=== PATIENT | female | born 1980 | race American Indian/Alaskan Native ===

== ENCOUNTER 2018-03-19 01:44 | Emergency (ER) | payer BC ==
[2018-03-19] MEDS ORDERED: MUCOMYST INHALATION INHALATION ONE (02:16)
[2018-03-19] MEDS ORDERED: XOPENEX IH ONE ×2 (02:16→02:40)
[2018-03-19] MEDS ORDERED: SOLU-Medrol IM ONE (02:17)
[2018-03-19] MEDS ORDERED: ATROVENT IH ONE (02:17)
--- NOTE | 2018-03-19 02:22 | Emergency Department Report ---
ED Shortness of Breath HPI - General Chief Complaint: Dyspnea/Respdistress Stated Complaint: ELIZABETH Time Seen by Provider: 03/19/18 02:16 Source: patient Mode of arrival: Stretcher Limitations: No Limitations - History of Present Illness Initial Comments: Patient is a 37-year-old female with history of hypertension and chronic bronchitis. Patient presented to the ER complaining of excessive coughing and shortness of breaths and wheezing. Patient stated that she's been having this problem for the last 2 months and is just getting worse. Patient stated that she was seen in another ER multiple times to have blood work and x-rays and CAT scan and came back negative. Patient was seen by her primary care physician who referred to an ENT doctor who told that she has allergies. Patient stated that her symptoms is worse at night. Patient denied any fever or chest pain. MD Complaint: shortness of breath, cough -: week(s) - Related Data Previous Rx's Medication Instructions Recorded Last Taken Type ALBUTEROL NEB's [Proventil 0.083% 2.5 mg IH TID PRN #30 nebu 03/19/18 Unknown Rx NEBS] Amoxicillin/Potassium Clav 1 each PO BID #14 tablet 03/19/18 Unknown Rx [Augmentin 875-125 Tablet] Prednisone [predniSONE 10 mg 10 mg PO .TAPER #1 tab.ds.pk 03/19/18 Unknown Rx (6-Day Pack, 21 Tabs)] Allergies Allergy/AdvReac Type Severity Reaction Status Date / Time No Known Allergies Allergy Unverified 03/19/18 02:00 ED Review of Systems ROS: Stated complaint: ELIZABETH Other details as noted in HPI Comment: All other systems reviewed and negative Constitutional: denies: chills, fever Respiratory: cough, shortness of breath, wheezing. denies: orthopnea, SOB with exertion, SOB at rest Cardiovascular: palpitations. denies: chest pain, dyspnea on exertion, orthopnea Gastrointestinal: denies: abdominal pain, nausea, vomiting Neurological: denies: headache, weakness, numbness, paresthesias ED Past Medical Hx - Past Medical History Previous Medical History?: Yes Hx Hypertension: Yes - Social History Smoking Status: Never Smoker Substance Use Type: None - Medications Home Medications: Home Medications Medication Instructions Recorded Confirmed Last Taken Type ALBUTEROL NEB's [Proventil 0.083% 2.5 mg IH TID PRN #30 nebu 03/19/18 Unknown Rx NEBS] Amoxicillin/Potassium Clav 1 each PO BID #14 tablet 03/19/18 Unknown Rx [Augmentin 875-125 Tablet] Prednisone [predniSONE 10 mg 10 mg PO .TAPER #1 tab.ds.pk 03/19/18 Unknown Rx (6-Day Pack, 21 Tabs)] ED Physical Exam - General Limitations: No Limitations General appearance: alert, in no apparent distress, other (actively coughing.) - Head Head exam: Present: atraumatic, normocephalic - Eye Eye exam: Present: normal appearance - ENT ENT exam: Present: normal exam, normal orophraynx, mucous membranes moist - Neck Neck exam: Present: normal inspection, full ROM. Absent: tenderness, meningismus, lymphadenopathy, thyromegaly - Respiratory Respiratory exam: Present: wheezes. Absent: respiratory distress, rales, rhonchi, accessory muscle use, decreased breath sounds, prolonged expiratory - Cardiovascular Cardiovascular Exam: Present: regular rate, normal rhythm, normal heart sounds - GI/Abdominal GI/Abdominal exam: Present: soft, normal bowel sounds. Absent: distended, tenderness, guarding, rebound, rigid, organomegaly, mass, bruit, pulsatile mass , hernia - Extremities Exam Extremities exam: Present: normal inspection, full ROM. Absent: pedal edema, calf tenderness - Back Exam Back exam: Present: normal inspection, full ROM. Absent: tenderness, CVA tenderness (R), CVA tenderness (L), muscle spasm, paraspinal tenderness, vertebral tenderness - Neurological Exam Neurological exam: Present: alert, oriented X3, CN II-XII intact, normal gait, reflexes normal - Skin Skin exam: Present: warm, intact, normal color ED Course Vital Signs 03/19/18 03/19/18 03/19/18 02:02 02:41 03:15 Temperature 98.8 F Pulse Rate 115 H Pulse Rate [ 102 H 100 H Posterior Bilateral Throughout] Respiratory 24 Rate Respiratory 22 20 Rate [Posterior Bilateral Throughout] Blood Pressure 136/82 O2 Sat by Pulse 94 Oximetry 03/19/18 03/19/18 03/19/18 03:30 04:00 05:00 Temperature Pulse Rate 111 H 116 H Pulse Rate [ Posterior Bilateral Throughout] Respiratory Rate Respiratory Rate [Posterior Bilateral Throughout] Blood Pressure 116/68 123/73 123/73 O2 Sat by Pulse 97 94 96 Oximetry 03/19/18 06:02 Temperature Pulse Rate 100 H Pulse Rate [ Posterior Bilateral Throughout] Respiratory Rate Respiratory Rate [Posterior Bilateral Throughout] Blood Pressure O2 Sat by Pulse Oximetry - Reevaluation(s) Reevaluation #1: 03/19/18 06:15 Patient stated that she is feeling much better. I discussed with the results of her CT as sinus and the need to follow-up with ENT as soon as possible. ED Medical Decision Making - Radiology Data Radiology results: report reviewed Referring Physician: ENRIQUE HANSEN Patient Name: VIRA JOHNSON Date of : 1980 Sex: Female Report Date: 2018-03-19 Report Status: Finalized Findings [facility] [address] [place] [address] Cat Scan Report Signed Patient: VIRA JOHNSON MR#: [id number] : 1980 Acct:[id number] Age/Sex: 37 / F ADM Date: 03/19/18 Loc: ED Attending Dr: Ordering Physician: ENRIQUE HANSEN Date of Service: 03/19/18 Procedure(s): CT sinuses wo con Accession Number(s): [id number] cc: ENRIQUE HANSEN FINAL REPORT PROCEDURE: CT SINUSES WO CON TECHNIQUE: Computerized axial tomography of the paranasal sinuses was performed without contrast material. Axial, coronal, and sagittal multiplanar reformatted images were created from the original dataset. HISTORY: facial pain, bilateral maxillary tenderness X 4 months COMPARISON: No prior studies are available for comparison. FINDINGS: There is complete opacification of the frontal, ethmoid and sphenoid sinuses and the left maxillary sinus. There is mucosal thickening in the right maxillary sinus. The osteal meatal units are obstructed bilaterally. There is no destructive bony process. Nasal septum is midline. Superficial soft tissues are unremarkable. IMPRESSION: There is pansinusitis and obstruction of the osteal meatal units bilaterally. Transcribed By: CO Dictated By: MIRYAM ELLIOTT MD Electronically Authenticated By: MIRYAM ELLIOTT MD Signed Date/Time: 03/19/18529 DD/ 9 TD/TT: 03/19/18529 Critical care attestation.: If time is entered above; I have spent that time in minutes in the direct care of this critically ill patient, excluding procedure time. ED Disposition Clinical Impression: Asthmatic bronchitis, Acute recurrent pansinusitis Disposition: TO HOME OR SELFCARE Is pt being admited?: No Condition: Stable Instructions: Sinusitis (ED), Chronic Bronchitis (ED) Prescriptions: ALBUTEROL NEB's [Proventil 0.083% NEBS] 2.5 mg IH TID PRN #30 nebu PRN Reason: Wheezing Amoxicillin/Potassium Clav [Augmentin 875-125 Tablet] 1 each PO BID #14 tablet Prednisone [predniSONE 10 mg (6-Day Pack, 21 Tabs)] 10 mg PO .TAPER #1 tab.ds.pk Referrals: PRIMARY CARE, [Primary Care Provider] - 3-5 Days Forms: Accompanied Note, Work/School Release Form(ED)
[2018-03-19] MEDS ORDERED: ROBITUSSIN AC PO ONE (03:32)
[2018-03-19 04:54] VITALS: BP 123/73
--- NOTE | 2018-03-19 05:32 | Cat Scan Report ---
FINAL REPORT PROCEDURE: CT SINUSES WO CON TECHNIQUE: Computerized axial tomography of the paranasal sinuses was performed without contrast material. Axial, coronal, and sagittal multiplanar reformatted images were created from the original dataset. HISTORY: facial pain, bilateral maxillary tenderness X 4 months COMPARISON: No prior studies are available for comparison. FINDINGS: There is complete opacification of the frontal, ethmoid and sphenoid sinuses and the left maxillary sinus. There is mucosal thickening in the right maxillary sinus. The osteal meatal units are obstructed bilaterally. There is no destructive bony process. Nasal septum is midline. Superficial soft tissues are unremarkable. IMPRESSION: There is pansinusitis and obstruction of the osteal meatal units bilaterally.
== END 2018-03-19 06:40 | disposition home or self-care (01) ==
LOC: ED 01:44
DX: J45.909 Unspecified asthma, uncomplicated (principal); J01.41 Acute recurrent pansinusitis; I10 Essential (primary) hypertension
CPT/HCPCS: 70486; 94640; 96372; 99284; J2930; 94644